=== PATIENT | male | born 1950 | race Caucasian/White ===

== ENCOUNTER 2017-05-08 10:04 | Inpatient (IN) | payer MEDICARE, BC ==
[2017-05-08] MEDS: APAP/OXYCODONE 325/5 TAB PO PRN (14:25)
[2017-05-08] MEDS: ACETAMINOPHEN 325 MG PO PRN (16:24)
[2017-05-08] MEDS: TRAMADOL HYDROCHLORIDE 50 MG TAB PO PRN (16:24)
[2017-05-08] MEDS: NOVOLOG FLEXPEN SC SCH ×2 (17:34→21:04)
[2017-05-08] MEDS: GLIMEPIRIDE 2 MG TAB PO SCH (20:42)
[2017-05-08] MEDS: FISH OIL PO SCH (20:43)
[2017-05-08] MEDS: OMEGA PO SCH (20:43)
[2017-05-08] MEDS: FATTY ACIDS PO SCH (20:43)
[2017-05-08] MEDS: [UNRECOGNIZED DRUG - OTHER] PO SCH (20:43)
[2017-05-08] MEDS: SIMVASTATIN 20 MG TAB PO SCH (20:44)
[2017-05-08] MEDS: TAMSULOSIN HYDROCHLORIDE 0.4 MG CAP PO SCH (20:44)
[2017-05-09] MEDS: ACETAMINOPHEN 325 MG PO PRN (00:34)
[2017-05-09] MEDS: TRAMADOL HYDROCHLORIDE 50 MG TAB PO PRN ×2 (00:35→07:48)
[2017-05-09] MEDS: APAP/OXYCODONE 325/5 TAB PO PRN ×4 (04:52→22:47)
[2017-05-09 07:35] LABS: CALCIUM 8.4 mg/dl (8.5-10.1); POTASSIUM 3.3 mMol/L (3.5-5.1)
[2017-05-09 07:38] LABS: BASOPHILS % (AUTO) 1 % (0-3); EOSINOPHILS % (AUTO) 1 % (0-9); HEMATOCRIT 29 % (39-53); MEAN CORPUSCULAR HGB CONC 34.6 gm/dl (32.0-36.0); MEAN CORPUSCULAR VOLUME 82 fL (80-100); MONOCYTES % (AUTO) 10.9 % (0-12); NEUTROPHILS % (AUTO) 72.2 % (37-80)
[2017-05-09] MEDS: NOVOLOG FLEXPEN SC SCH ×4 (09:14→20:59)
[2017-05-09] MEDS: FATTY ACIDS PO SCH ×2 (09:26→20:51)
[2017-05-09] MEDS: RIVAROXABAN 10 MG TAB PO SCH (09:26)
[2017-05-09] MEDS: AMLODIPINE 5 MG TAB PO SCH (09:26)
[2017-05-09] MEDS: FISH OIL PO SCH ×2 (09:26→20:51)
[2017-05-09] MEDS: [UNRECOGNIZED DRUG - OTHER] PO SCH ×2 (09:26→20:51)
[2017-05-09] MEDS: LISINOPRIL 20 MG TAB PO SCH (09:26)
[2017-05-09] MEDS: OMEGA PO SCH ×2 (09:26→20:51)
[2017-05-09] MEDS: METOPROLOL SUCCINATE 50 MG ER TAB PO SCH (09:27)
[2017-05-09] MEDS: GLIMEPIRIDE 2 MG TAB PO SCH ×2 (09:27→20:50)
[2017-05-09] MEDS: HYDROCHLOROTHIAZIDE 25 MG TAB PO SCH (09:27)
[2017-05-09] MEDS: ASPIRIN 81 MG CHEWABLE CTB PO SCH (09:31)
[2017-05-09] MEDS: POTASSIUM CHLORIDE 10 MEQ TER PO SCH (09:39)
[2017-05-09] MEDS: METFORMIN HYDROCHLORIDE 500 MG TAB PO SCH ×2 (09:39→17:31)
[2017-05-09] MEDS: TAMSULOSIN HYDROCHLORIDE 0.4 MG CAP PO SCH (20:50)
[2017-05-09] MEDS: SIMVASTATIN 20 MG TAB PO SCH (20:51)
[2017-05-10] MEDS: APAP/OXYCODONE 325/5 TAB PO PRN ×4 (06:37→20:45)
[2017-05-10] MEDS: NOVOLOG FLEXPEN SC SCH ×4 (08:18→21:04)
[2017-05-10] MEDS: ASPIRIN 81 MG CHEWABLE CTB PO SCH (08:24)
[2017-05-10] MEDS: HYDROCHLOROTHIAZIDE 25 MG TAB PO SCH (08:24)
[2017-05-10] MEDS: METFORMIN HYDROCHLORIDE 500 MG TAB PO SCH ×2 (08:25→17:06)
[2017-05-10] MEDS: POTASSIUM CHLORIDE 10 MEQ TER PO SCH (08:25)
[2017-05-10] MEDS: FATTY ACIDS PO SCH ×2 (08:26→20:39)
[2017-05-10] MEDS: [UNRECOGNIZED DRUG - OTHER] PO SCH ×2 (08:26→20:39)
[2017-05-10] MEDS: AMLODIPINE 5 MG TAB PO SCH (08:26)
[2017-05-10] MEDS: FISH OIL PO SCH ×2 (08:26→20:39)
[2017-05-10] MEDS: OMEGA PO SCH ×2 (08:26→20:39)
[2017-05-10] MEDS: LISINOPRIL 20 MG TAB PO SCH (08:27)
[2017-05-10] MEDS: METOPROLOL SUCCINATE 50 MG ER TAB PO SCH (08:27)
[2017-05-10] MEDS: RIVAROXABAN 10 MG TAB PO SCH (08:27)
[2017-05-10] MEDS: INSULIN GLARGINE, RECOMBINAN 100 U/ML SOL SC SCH (08:36)
[2017-05-10] MEDS: TAMSULOSIN HYDROCHLORIDE 0.4 MG CAP PO SCH (20:39)
[2017-05-10] MEDS: SIMVASTATIN 20 MG TAB PO SCH (20:40)
[2017-05-11] MEDS: APAP/OXYCODONE 325/5 TAB PO PRN ×4 (01:58→20:17)
[2017-05-11] MEDS: ASPIRIN 81 MG CHEWABLE CTB PO SCH (08:22)
[2017-05-11] MEDS: HYDROCHLOROTHIAZIDE 25 MG TAB PO SCH (08:22)
[2017-05-11] MEDS: POTASSIUM CHLORIDE 10 MEQ TER PO SCH (08:22)
[2017-05-11] MEDS: METFORMIN HYDROCHLORIDE 500 MG TAB PO SCH ×2 (08:22→18:02)
[2017-05-11] MEDS: FISH OIL PO SCH ×2 (08:23→20:17)
[2017-05-11] MEDS: FATTY ACIDS PO SCH ×2 (08:23→20:17)
[2017-05-11] MEDS: METOPROLOL SUCCINATE 50 MG ER TAB PO SCH (08:23)
[2017-05-11] MEDS: AMLODIPINE 5 MG TAB PO SCH (08:23)
[2017-05-11] MEDS: OMEGA PO SCH ×2 (08:23→20:17)
[2017-05-11] MEDS: [UNRECOGNIZED DRUG - OTHER] PO SCH ×2 (08:23→20:17)
[2017-05-11] MEDS: RIVAROXABAN 10 MG TAB PO SCH (08:24)
[2017-05-11] MEDS: LISINOPRIL 20 MG TAB PO SCH (08:24)
[2017-05-11] MEDS: INSULIN GLARGINE, RECOMBINAN 100 U/ML SOL SC SCH (08:26)
[2017-05-11] MEDS: NOVOLOG FLEXPEN SC SCH ×4 (08:28→20:22)
[2017-05-11] MEDS: TAMSULOSIN HYDROCHLORIDE 0.4 MG CAP PO SCH (20:17)
[2017-05-11] MEDS: SIMVASTATIN 20 MG TAB PO SCH (20:17)
[2017-05-12] MEDS: APAP/OXYCODONE 325/5 TAB PO PRN ×5 (00:27→23:00)
[2017-05-12] MEDS: INSULIN GLARGINE, RECOMBINAN 100 U/ML SOL SC SCH (08:53)
[2017-05-12] MEDS: NOVOLOG FLEXPEN SC SCH ×4 (08:53→20:42)
[2017-05-12] MEDS: OMEGA PO SCH ×2 (08:56→20:44)
[2017-05-12] MEDS: [UNRECOGNIZED DRUG - OTHER] PO SCH ×2 (08:56→20:44)
[2017-05-12] MEDS: FISH OIL PO SCH ×2 (08:56→20:44)
[2017-05-12] MEDS: FATTY ACIDS PO SCH ×2 (08:56→20:44)
[2017-05-12] MEDS: RIVAROXABAN 10 MG TAB PO SCH (08:57)
[2017-05-12] MEDS: AMLODIPINE 5 MG TAB PO SCH (08:57)
[2017-05-12] MEDS: LISINOPRIL 20 MG TAB PO SCH (08:57)
[2017-05-12] MEDS: HYDROCHLOROTHIAZIDE 25 MG TAB PO SCH (08:57)
[2017-05-12] MEDS: METFORMIN HYDROCHLORIDE 500 MG TAB PO SCH ×2 (08:57→18:58)
[2017-05-12] MEDS: POTASSIUM CHLORIDE 10 MEQ TER PO SCH (08:57)
[2017-05-12] MEDS: METOPROLOL SUCCINATE 50 MG ER TAB PO SCH (08:58)
[2017-05-12] MEDS: ASPIRIN 81 MG CHEWABLE CTB PO SCH (08:58)
[2017-05-12] MEDS: TRAMADOL HYDROCHLORIDE 50 MG TAB PO PRN ×3 (09:00→20:51)
[2017-05-12] MEDS: TAMSULOSIN HYDROCHLORIDE 0.4 MG CAP PO SCH (20:43)
[2017-05-12] MEDS: SIMVASTATIN 20 MG TAB PO SCH (20:44)
[2017-05-12] MEDS: ACETAMINOPHEN 325 MG PO PRN (20:51)
[2017-05-13] MEDS: APAP/OXYCODONE 325/5 TAB PO PRN ×5 (03:05→22:00)
[2017-05-13 08:16] LABS: BASOPHILS % (AUTO) 1 % (0-3); EOSINOPHILS % (AUTO) 3 % (0-9); HEMATOCRIT 33 % (39-53); MEAN CORPUSCULAR HGB CONC 34.8 gm/dl (32.0-36.0); MEAN CORPUSCULAR VOLUME 82 fL (80-100); MONOCYTES % (AUTO) 10.7 % (0-12); NEUTROPHILS % (AUTO) 61.2 % (37-80)
[2017-05-13 08:34] LABS: CALCIUM 8.9 mg/dl (8.5-10.1); POTASSIUM 3.7 mMol/L (3.5-5.1)
[2017-05-13] MEDS: NOVOLOG FLEXPEN SC SCH ×4 (08:36→20:20)
[2017-05-13] MEDS: INSULIN GLARGINE, RECOMBINAN 100 U/ML SOL SC SCH (08:37)
[2017-05-13] MEDS: METOPROLOL SUCCINATE 50 MG ER TAB PO SCH (08:41)
[2017-05-13] MEDS: AMLODIPINE 5 MG TAB PO SCH (08:41)
[2017-05-13] MEDS: LISINOPRIL 20 MG TAB PO SCH (08:41)
[2017-05-13] MEDS: POTASSIUM CHLORIDE 10 MEQ TER PO SCH (08:42)
[2017-05-13] MEDS: RIVAROXABAN 10 MG TAB PO SCH (08:42)
[2017-05-13] MEDS: HYDROCHLOROTHIAZIDE 25 MG TAB PO SCH (08:42)
[2017-05-13] MEDS: ASPIRIN 81 MG CHEWABLE CTB PO SCH (08:42)
[2017-05-13] MEDS: METFORMIN HYDROCHLORIDE 500 MG TAB PO SCH ×2 (08:42→17:28)
[2017-05-13] MEDS: OMEGA PO SCH ×2 (08:43→20:20)
[2017-05-13] MEDS: FISH OIL PO SCH ×2 (08:43→20:20)
[2017-05-13] MEDS: FATTY ACIDS PO SCH ×2 (08:43→20:20)
[2017-05-13] MEDS: [UNRECOGNIZED DRUG - OTHER] PO SCH ×2 (08:43→20:20)
[2017-05-13] MEDS: TRAMADOL HYDROCHLORIDE 50 MG TAB PO PRN ×2 (11:41→17:42)
[2017-05-13] MEDS ORDERED: OXYCODONE HYDROCHLORIDE 5 MG TAB PO ONE (15:55)
[2017-05-13] MEDS: FUROSEMIDE 20 MG TAB PO SCH (19:34)
[2017-05-13] MEDS: TAMSULOSIN HYDROCHLORIDE 0.4 MG CAP PO SCH (20:20)
[2017-05-13] MEDS: SIMVASTATIN 20 MG TAB PO SCH (20:20)
[2017-05-14] MEDS: APAP/OXYCODONE 325/5 TAB PO PRN ×5 (00:23→20:05)
[2017-05-14] MEDS: TRAMADOL HYDROCHLORIDE 50 MG TAB PO PRN ×2 (02:28→11:53)
[2017-05-14] MEDS: NOVOLOG FLEXPEN SC SCH ×4 (08:24→20:06)
[2017-05-14] MEDS: ASPIRIN 81 MG CHEWABLE CTB PO SCH (08:29)
[2017-05-14] MEDS: HYDROCHLOROTHIAZIDE 25 MG TAB PO SCH (08:31)
[2017-05-14] MEDS: ACETAMINOPHEN 325 MG PO PRN (08:31)
[2017-05-14] MEDS: POTASSIUM CHLORIDE 10 MEQ TER PO SCH (08:33)
[2017-05-14] MEDS: METFORMIN HYDROCHLORIDE 500 MG TAB PO SCH ×2 (08:35→17:21)
[2017-05-14] MEDS: FUROSEMIDE 20 MG TAB PO SCH (08:36)
[2017-05-14] MEDS: AMLODIPINE 5 MG TAB PO SCH (08:37)
[2017-05-14] MEDS: OMEGA PO SCH ×2 (08:38→20:05)
[2017-05-14] MEDS: FISH OIL PO SCH ×2 (08:38→20:05)
[2017-05-14] MEDS: [UNRECOGNIZED DRUG - OTHER] PO SCH ×2 (08:38→20:05)
[2017-05-14] MEDS: FATTY ACIDS PO SCH ×2 (08:38→20:05)
[2017-05-14] MEDS: METOPROLOL SUCCINATE 50 MG ER TAB PO SCH (08:39)
[2017-05-14] MEDS: RIVAROXABAN 10 MG TAB PO SCH (08:40)
[2017-05-14] MEDS: LISINOPRIL 20 MG TAB PO SCH (08:41)
[2017-05-14] MEDS: INSULIN GLARGINE, RECOMBINAN 100 U/ML SOL SC SCH (08:42)
[2017-05-14] MEDS: SIMVASTATIN 20 MG TAB PO SCH (20:04)
[2017-05-14] MEDS: TAMSULOSIN HYDROCHLORIDE 0.4 MG CAP PO SCH (20:04)
[2017-05-14] MEDS ORDERED: INSULIN GLARGINE, RECOMBINAN 100 U/ML SOL SC SCH (21:00)
[2017-05-15] MEDS: APAP/OXYCODONE 325/5 TAB PO PRN ×5 (00:38→21:36)
[2017-05-15] MEDS: TRAMADOL HYDROCHLORIDE 50 MG TAB PO PRN ×2 (02:55→13:23)
[2017-05-15] MEDS: NOVOLOG FLEXPEN SC SCH ×4 (06:35→21:24)
[2017-05-15 07:37] LABS: BASOPHILS % (AUTO) 2 % (0-3); EOSINOPHILS % (AUTO) 3 % (0-9); HEMATOCRIT 28 % (39-53); MEAN CORPUSCULAR VOLUME 82 fL (80-100); MONOCYTES % (AUTO) 8.6 % (0-12); NEUTROPHILS % (AUTO) 66.1 % (37-80)
[2017-05-15 08:18] LABS: CALCIUM 8.1 mg/dl (8.5-10.1); POTASSIUM 3.4 mMol/L (3.5-5.1)
[2017-05-15] MEDS: [UNRECOGNIZED DRUG - OTHER] PO SCH ×2 (08:50→21:35)
[2017-05-15] MEDS: FATTY ACIDS PO SCH ×2 (08:50→21:35)
[2017-05-15] MEDS: OMEGA PO SCH ×2 (08:50→21:35)
[2017-05-15] MEDS: FISH OIL PO SCH ×2 (08:50→21:35)
[2017-05-15] MEDS: HYDROCHLOROTHIAZIDE 25 MG TAB PO SCH (08:51)
[2017-05-15] MEDS: METFORMIN HYDROCHLORIDE 500 MG TAB PO SCH ×2 (08:51→17:22)
[2017-05-15] MEDS: ASPIRIN 81 MG CHEWABLE CTB PO SCH (08:51)
[2017-05-15] MEDS: METOPROLOL SUCCINATE 50 MG ER TAB PO SCH (08:52)
[2017-05-15] MEDS: AMLODIPINE 5 MG TAB PO SCH (08:52)
[2017-05-15] MEDS: LISINOPRIL 20 MG TAB PO SCH (08:53)
[2017-05-15] MEDS: RIVAROXABAN 10 MG TAB PO SCH (08:53)
[2017-05-15] MEDS ORDERED: FUROSEMIDE 20 MG TAB ONE (08:55)
[2017-05-15] MEDS: FUROSEMIDE 40 MG TAB PO SCH (10:04)
[2017-05-15] MEDS: POTASSIUM CHLORIDE 10 MEQ TER PO SCH ×2 (10:04→21:35)
[2017-05-15] MEDS: INSULIN GLARGINE, RECOMBINAN 100 U/ML SOL SC SCH (21:25)
[2017-05-15] MEDS: TAMSULOSIN HYDROCHLORIDE 0.4 MG CAP PO SCH (21:35)
[2017-05-15] MEDS: SIMVASTATIN 20 MG TAB PO SCH (21:36)
[2017-05-16] MEDS: APAP/OXYCODONE 325/5 TAB PO PRN ×3 (03:35→21:10)
[2017-05-16 07:33] LABS: BASOPHILS % (AUTO) 1 % (0-3); EOSINOPHILS % (AUTO) 2 % (0-9); HEMATOCRIT 30 % (39-53); MEAN CORPUSCULAR HGB CONC 33.8 gm/dl (32.0-36.0); MEAN CORPUSCULAR VOLUME 82 fL (80-100); MONOCYTES % (AUTO) 9.2 % (0-12); NEUTROPHILS % (AUTO) 70.2 % (37-80)
[2017-05-16 07:51] LABS: CALCIUM 8.6 mg/dl (8.5-10.1); POTASSIUM 3.7 mMol/L (3.5-5.1)
[2017-05-16] MEDS: NOVOLOG FLEXPEN SC SCH ×4 (08:44→21:14)
[2017-05-16] MEDS: ASPIRIN 81 MG CHEWABLE CTB PO SCH (08:51)
[2017-05-16] MEDS: HYDROCHLOROTHIAZIDE 25 MG TAB PO SCH (08:52)
[2017-05-16] MEDS: POTASSIUM CHLORIDE 10 MEQ TER PO SCH ×2 (08:53→21:11)
[2017-05-16] MEDS: FUROSEMIDE 40 MG TAB PO SCH (08:53)
[2017-05-16] MEDS: METFORMIN HYDROCHLORIDE 500 MG TAB PO SCH ×2 (08:53→19:02)
[2017-05-16] MEDS: OMEGA PO SCH ×2 (08:54→21:10)
[2017-05-16] MEDS: LISINOPRIL 20 MG TAB PO SCH (08:54)
[2017-05-16] MEDS: FATTY ACIDS PO SCH ×2 (08:54→21:10)
[2017-05-16] MEDS: RIVAROXABAN 10 MG TAB PO SCH (08:54)
[2017-05-16] MEDS: [UNRECOGNIZED DRUG - OTHER] PO SCH ×2 (08:54→21:10)
[2017-05-16] MEDS: METOPROLOL SUCCINATE 50 MG ER TAB PO SCH (08:54)
[2017-05-16] MEDS: FISH OIL PO SCH ×2 (08:54→21:10)
[2017-05-16] MEDS: AMLODIPINE 5 MG TAB PO SCH (08:54)
[2017-05-16] MEDS: TRAMADOL HYDROCHLORIDE 50 MG TAB PO PRN (16:59)
[2017-05-16] MEDS ORDERED: WARFARIN SODIUM 5 MG TAB PO SCH (18:00)
[2017-05-16] MEDS: TAMSULOSIN HYDROCHLORIDE 0.4 MG CAP PO SCH (21:12)
[2017-05-16] MEDS: SIMVASTATIN 20 MG TAB PO SCH (21:12)
[2017-05-16] MEDS: INSULIN GLARGINE, RECOMBINAN 100 U/ML SOL SC SCH (21:14)
[2017-05-17] MEDS: TRAMADOL HYDROCHLORIDE 50 MG TAB PO PRN (03:39)
[2017-05-17] MEDS: APAP/OXYCODONE 325/5 TAB PO PRN ×2 (04:37→08:48)
[2017-05-17] MEDS: NOVOLOG FLEXPEN SC SCH (08:44)
[2017-05-17 09:27] VITALS: BP 135/77; PULSE 78; RESP 14; TEMP 97.7; O2SAT 97
[2017-05-17] MEDS: ASPIRIN 81 MG CHEWABLE CTB PO SCH (09:29)
[2017-05-17] MEDS: HYDROCHLOROTHIAZIDE 25 MG TAB PO SCH (09:29)
[2017-05-17] MEDS: POTASSIUM CHLORIDE 10 MEQ TER PO SCH (09:30)
[2017-05-17] MEDS: FUROSEMIDE 40 MG TAB PO SCH (09:30)
[2017-05-17] MEDS: METFORMIN HYDROCHLORIDE 500 MG TAB PO SCH (09:31)
[2017-05-17] MEDS: AMLODIPINE 5 MG TAB PO SCH (09:31)
[2017-05-17] MEDS: FATTY ACIDS PO SCH (09:32)
[2017-05-17] MEDS: FISH OIL PO SCH (09:32)
[2017-05-17] MEDS: [UNRECOGNIZED DRUG - OTHER] PO SCH (09:32)
[2017-05-17] MEDS: OMEGA PO SCH (09:32)
[2017-05-17] MEDS: METOPROLOL SUCCINATE 50 MG ER TAB PO SCH (09:33)
[2017-05-17] MEDS: LISINOPRIL 20 MG TAB PO SCH (09:34)
== END 2017-05-17 11:15 | disposition home or self-care (01) | DRG 561 ==
LOC: ACUTE CARE 11:33
PROVIDERS: ADMIT Family Medicine; ATTEND Family Medicine
PROC: F01ZDFZ Gait and/or Balance Assessment using Assistive, Adaptive, Supportive or Protective Equipment (ICD-10-PCS; principal; 2017-05-08)
PROC: F01ZBZZ Bed Mobility Assessment (ICD-10-PCS; 2017-05-08)
PROC: F01ZCZZ Transfer Assessment (ICD-10-PCS; 2017-05-08)
PROC: F02Z1ZZ Dressing Assessment (ICD-10-PCS; 2017-05-09)
PROC: F02Z3ZZ Grooming/Personal Hygiene Assessment (ICD-10-PCS; 2017-05-09)
PROC: F02Z4ZZ Home Management Assessment (ICD-10-PCS; 2017-05-09)
DX: Z47.1 Aftercare following joint replacement surgery (principal); I48.91 Unspecified atrial fibrillation; E11.9 Type 2 diabetes mellitus without complications; I10 Essential (primary) hypertension; K59.00 Constipation, unspecified; Z96.653 Presence of artificial knee joint, bilateral; R60.9 Edema, unspecified; I72.4 Aneurysm of artery of lower extremity
CPT/HCPCS: 36415; 80048; 82962; 85018; 85025; 85610; 93005; J1817; A4450; A6232; A9270; A9270-GY; J1815

== ENCOUNTER 2017-05-23 11:42 | Emergency (ER) | payer MEDICARE, BC ==
[2017-05-23] MEDS ORDERED: CYCLOBENZAPRINE 10 MG TAB PO ONE (12:09)
[2017-05-23 12:10] VITALS: TEMP 98.6
[2017-05-23] MEDS ORDERED: CYCLOBENZAPRINE 10 MG TAB ONE (12:11)
[2017-05-23] MEDS ORDERED: APAP/OXYCODONE 325/5 TAB PO ONE (12:34)
[2017-05-23] MEDS ORDERED: APAP/OXYCODONE 325/5 TAB ONE (12:35)
[2017-05-23 13:19] VITALS: BP 133/78; PULSE 65; RESP 18; O2SAT 99
== END 2017-05-23 14:40 | disposition home or self-care (01) | DRG 556 ==
LOC: ED 11:42
DX: M25.562 Pain in left knee (principal); I48.91 Unspecified atrial fibrillation; Z96.653 Presence of artificial knee joint, bilateral; Z98.890 Other specified postprocedural states; M25.561 Pain in right knee; Z96.643 Presence of artificial hip joint, bilateral; Z79.01 Long term (current) use of anticoagulants; E11.9 Type 2 diabetes mellitus without complications; M25.462 Effusion, left knee; M25.461 Effusion, right knee
CPT/HCPCS: 36415; 73562; 82962; 85610; 99284; A9270-GY

== ENCOUNTER 2018-07-12 09:52 | Emergency (ER) | payer MEDICARE, BC ==
[2018-07-12 09:57] VITALS: RESP 18; TEMP 98.6
[2018-07-12] MEDS ORDERED: APAP/HYDROCODONE 325/7.5 TAB PO PRN (10:36)
[2018-07-12] MEDS ORDERED: APAP/HYDROCODONE 1 EACH TABLET ONE (10:41)
[2018-07-12] MEDS ORDERED: APAP/HYDROCODONE 1 EACH TABLET PO ONE (10:44)
[2018-07-12 11:48] VITALS: BP 154/83; PULSE 68; O2SAT 92
== END 2018-07-12 11:47 | disposition home or self-care (01) | DRG 93 ==
LOC: ED 09:52
DX: R20.2 Paresthesia of skin (principal); M79.601 Pain in right arm; M54.2 Cervicalgia; E11.9 Type 2 diabetes mellitus without complications
CPT/HCPCS: 72125; 99283; A9270-GY